=== PATIENT | female | born 1995 | race Caucasian/White ===

== ENCOUNTER 2019-05-24 23:33 | Emergency (ER) | payer MEDICAID ==
[~2019-05-24] VITALS: Ht 172.7 cm; Wt 55.3 kg
--- NOTE | 2019-05-24 23:54 | NUR ---
BLOOD DRAWN AND GIVEN TO PHLEB
--- NOTE | 2019-05-24 23:55 | NUR ---
PT BIBRA +PD. C/C "FRIEND FOUND SUICIDE NOTE, PT TOOK 8X XANAX BARS. UNKNOWN STRENGTH" -SOB AOX4. VSS. AMBULATORY. PT APPEARS DROWSY. PT AOX3. NAD NOTED. RESP EVEN AND UNLABORED. PT ON MONITOR IN BED 13 WITH FRIEND AT BEDSIDE. WILL CONTINUE TO MONITOR.
[2019-05-24] MEDS: IV NS 0.9% 1,000 ML BAG IV ONE (23:56)
--- NOTE | 2019-05-24 23:56 | NUR ---
TECH AT BEDSIDE FOR EKG
[2019-05-24 23:57] LABS: BASOPHILS % (AUTO) 0.6 % (0.0-2.0); EOSINOPHILS % (AUTO) 3.4 % (0.0-6.0); HEMATOCRIT 47 % (33-45); HEMOGLOBIN 15.7 g/dL (11.5-14.8); LYMPHOCYTES # (AUTO) 2.6 /CMM (0.8-4.8); LYMPHOCYTES % (AUTO) 34.5 % (20.0-44.0); MEAN CORPUSCULAR HGB CONC 34 g/dl (31.0-36.0); MEAN CORPUSCULAR VOLUME 95 fL (82-100); MONOCYTES # (AUTO) 0.6 /CMM (0.1-1.30); MONOCYTES % (AUTO) 7.7 % (2.0-12.0); NEUTROPHILS % (AUTO) 53.8 % (43.0-81.0); PLATELET COUNT (AUTO) 266 /CMM (150-450); RED BLOOD CELL COUNT(AUTO) 4.91 MIL/uL (4.0-5.2); WHITE BLOOD COUNT (AUTO) 7.5 K/uL (4.3-11.0)
[2019-05-25 00:08] LABS: CALCIUM, SERUM 9.2 mg/dL (8.5-10.1); CREATININE 0.9 mg/dL (0.6-1.3); POTASSIUM 3.5 mmol/L (3.5-5.1)
[2019-05-25 00:20] LABS: ALBUMIN 4.3 g/dL (3.4-5.0); BILIRUBIN,DIRECT 0.1 mg/dL (0.0-0.2); BILIRUBIN,TOTAL 0.5 mg/dL (0.2-1.0); SALICYLATE 3.7 mg/dL (2.8-20.0); TOTAL PROTEIN, SERUM 7.8 g/dL (6.4-8.2)
--- NOTE | 2019-05-25 00:28 | NUR ---
ART, INTERNATIONAL RELATIONS PROFESSOR AT BEDSIDE FOR EVAL
--- NOTE | 2019-05-25 00:55 | NUR ---
URINE COLLECTED AND SENT TO LAB
[2019-05-25 01:11] LABS: APPEARANCE,URINE Clear (CLEAR); BILIRUBIN,URINE Negative (NEGATIVE); BLOOD, URINE Negative Ery/uL (NEGATIVE); COLOR,URINE Yellow (YELLOW); KETONES,URINE Negative (NEGATIVE); LEUKOCYTE ESTERASE ,URINE Negative (NEGATIVE); NITRITE, URINE Negative (NEGATIVE); PH,URINE 5.5 (5.0-8.0); PROTEIN,URINE Negative (NEGATIVE); UGLUCOSE Negative (NEGATIVE); UROBILINOGEN,URINE 0.2 EU/dL (0.2)
--- NOTE | 2019-05-25 01:16 | NUR ---
Patient is resting comfortably in bed with FRIEND. Easily aroused. VSS.
--- NOTE | 2019-05-25 03:45 | NUR ---
GRIFFIN [phone]
--- NOTE | 2019-05-25 04:01 | NUR ---
PER ART. UNABLE TO EVALUATE PATIENT AT THIS TIME. CALL BACK AT 9:30 FOR RE-EVALUATION
--- NOTE | 2019-05-25 05:52 | NUR ---
Patient is resting comfortably in bed with eyes closed. Easily aroused.
--- NOTE | 2019-05-25 07:50 | NUR ---
CALLED FOR FOOD TRAY
--- NOTE | 2019-05-25 09:41 | NUR ---
BEVERLEY LEONARDO LCSW CALLED FOR EVAL
--- NOTE | 2019-05-25 11:14 | NUR ---
BEVERLEY QURESHIW AT BEDSIDE FOR EVAL.
--- NOTE | 2019-05-25 11:26 | NUR ---
Patient is resting comfortably in bed with eyes closed. Easily aroused. VSS
--- NOTE | 2019-05-25 12:00 | NUR ---
PATIENT SEEN BY ART BALANCE STAFF INSPECTOR, PATIENT DENIES BEING SUICIDAL AT THIS TIME.
--- NOTE | 2019-05-25 12:31 | NUR ---
FAMILY FRIEND CAME AND PICKED UP PATIENT, DR. DELGADO AWARE. PATIENT'S IV REMOVED THIS MORNING. DISCHARGE INSTRUCTIONS GIVEN, AND VERBALIZED UNDERSTANDING, REFUSED TO WAIT FOR THE DISCHARGE PAPERWORKS, DR. DELGADO INFORMED. PATIENT IN STABLE CONDITION, DENIES SI/HI.
[2019-05-25 12:59] VITALS: BP 100/60
== END 2019-05-25 12:59 | disposition home or self-care (01) ==
LOC: ER 23:35
DX: T42.4X2A Poisoning by benzodiazepines, intentional self-harm, initial encounter (principal); R45.851 Suicidal ideations; F32.9 Major depressive disorder, single episode, unspecified; Y92.89 Other specified places as the place of occurrence of the external cause
CPT/HCPCS: 36415; 80048; 80076; 80305; 80307; 80329; 81001; 85025; 93005; 99284; G0480; J7030; 81000-TC